=== PATIENT | male | born 1990 | race Asian ===

== ENCOUNTER 2018-08-15 16:22 | Emergency (ER) | payer OTHER ==
[~2018-08-15] VITALS: Ht 170.2 cm; Wt 69.0 kg
[2018-08-15 16:35] VITALS: Ht 170.2 cm; Wt 69.0 kg
[2018-08-15 21:54] VITALS: BP 115/70
== END 2018-08-15 21:54 | disposition home or self-care (01) ==
LOC: ED 16:22
DX: J06.9 Acute upper respiratory infection, unspecified (principal); M79.10 Myalgia, unspecified site
CPT/HCPCS: 87804